=== PATIENT | male | born 1985 | race Caucasian/White ===

== ENCOUNTER 2016-05-06 08:27 | Inpatient (IN) | payer OTHER ==
[~2016-05-06] VITALS: Ht 170.1 cm; Wt 61.9 kg
[~2016-05-06 08:27] MED LIST: ANAPROX DS550 MG PO; BACTRIM DS 8001 TA1 PO; BENTYL20 MG PO; DUCODYL5 MG PO; LOMOTIL 0.025 M1 TA1 PO; NKHM; PERCOCET 325 MG1 TA5 PO; PRILOSEC20 M1 PO; PYRIDIUM200 M1 PO; ZANTAC150 MG PO; ZOFRAN ODT4 MG SL
[2016-05-06 09:09] LABS: HEMATOCRIT 44.1 % (42.0-52.0); HEMOGLOBIN 15.1 g/dl (14.0-18.0); MEAN CELL VOLUME 87.2 fl (80.0-94.0); MEAN CORPUSCULAR HGB 29.8 pg (27.0-31.0); MEAN CORPUSCULAR HGB CONC 34.2 g/dl (33.0-37.0); MEAN PLATELET VOLUME 8.9 fl (9.6-12.3); PLATELET COUNT AUTOMATED 253 10*3/uL (130-400); RED BLOOD COUNT 5.06 10*6/uL (4.50-5.90); RED CELL DISTRI WIDTH 12.4 % (0-14.5); WHITE BLOOD COUNT 12.5 10*3/uL (4.8-10.8)
[2016-05-06 09:23] LABS: ALBUMIN 4.3 gm/dl (3.1-4.5); ALKALINE PHOSPHATASE 94 U/L (45-117); BILIRUBIN, TOTAL 0.6 mg/dl (0.2-1.0); BUN 22 mg/dl (7-24); C-REACTIVE PROTEIN 0.98 MG/DL (0-0.3); CARBON DIOXIDE 23 mmol/L (21-32); CHLORIDE 106 mmol/L (98-107); EST GLOM FILT AFRICAN AMERICAN > 60 ml/min; GLUCOSE 106 mg/dL (65-99); MAGNESIUM 2.2 mg/dL (1.5-2.1); POTASSIUM 4.6 mmol/L (3.5-5.1); SGOT/AST 60 IU/L (3-35); SGPT/ALT 55 U/L (12-78); SODIUM 140 mmol/L (136-145); TOTAL PROTEIN 9.3 gm/dL (6.4-8.2)
[2016-05-06 09:26] LABS: BASOPHIL # 0.1 10*3/uL (0-0.1); BASOPHILS 1 % (0-1); EOSINOPHIL # 0.3 10*3/uL (0-0.4); EOSINOPHILS 2 % (1-4); LYMPHOCYTE # 0.6 10*3/uL (1.3-4.4); MONOCYTE # 0.3 10*3/uL (0.1-1.0); NEUTROPHIL # 11.3 10*3/uL (2.3-7.9); NEUTROPHILS 90 % (47-73); PLATELET SUFFICIENCY NORMAL (NORMAL); TOTAL CELLS COUNTED 100 #CELLS
[2016-05-07 06:58] LABS: BASO % 0.4 % (0.0-1.0); EOS # 0.1 10*3/uL (0.0-0.4); EOS % 1.5 % (1.0-4.0); LYMPH # 1.5 10*3/uL (1.3-4.4); LYMPH % 31.8 % (27.0-41.0); MEAN CELL VOLUME 88.8 fl (80.0-94.0); MEAN CORPUSCULAR HGB 29.7 pg (27.0-31.0); MEAN CORPUSCULAR HGB CONC 33.4 g/dl (33.0-37.0); MEAN PLATELET VOLUME 9.1 fl (9.6-12.3); MONO # 0.5 10*3/uL (0.1-1.0); MONO % 10.5 % (3.0-9.0); NEUT # 2.6 10*3/uL (2.3-7.9); NEUT % 55.2 % (47.0-73.0); PLATELET COUNT AUTOMATED 191 10*3/uL (130-400); RED BLOOD COUNT 3.84 10*6/uL (4.50-5.90); RED CELL DISTRI WIDTH 12.5 % (0-14.5); WHITE BLOOD COUNT 4.7 10*3/uL (4.8-10.8)
[2016-05-07 06:59] LABS: HEMATOCRIT 34.1 % (42.0-52.0); HEMOGLOBIN 11.4 g/dl (14.0-18.0)
[2016-05-07 07:07] LABS: HEMOGLOBIN A1c 5.5 % (4.8-5.6)
[2016-05-07 07:24] LABS: BUN 14 mg/dl (7-24); CARBON DIOXIDE 29 mmol/L (21-32); CHLORIDE 109 mmol/L (98-107); CHOLESTEROL 103 mg/dL (<200); EST GLOM FILT AFRICAN AMERICAN > 60 ml/min; GLUCOSE 120 mg/dL (65-99); MAGNESIUM 2.3 mg/dL (1.5-2.1); POTASSIUM 3.9 mmol/L (3.5-5.1); SGOT/AST 115 IU/L (3-35); SGPT/ALT 176 U/L (12-78); SODIUM 144 mmol/L (136-145)
[2016-05-07 07:31] LABS: ALKALINE PHOSPHATASE 95 U/L (45-117); BILIRUBIN, TOTAL 0.4 mg/dl (0.2-1.0); FREE T4 0.75 ng/dl (0.76-1.46); HDL CHOLESTEROL 66 mg/dl (40-60); LDL CHOLESTEROL 29 mg/dL (9-159); PHOSPHOROUS 2.4 mg/dL (2.5-4.9); THYROID STIM HORMONE (HS) 0.611 uIU/ml (0.358-4.75); TOTAL PROTEIN 6.4 gm/dL (6.4-8.2); TRIGLYCERIDES 41 mg/dl (<150); VLDL CHOLESTEROL 8 mg/dL (6-40)
[2016-05-07 08:42] LABS: VITAMIN D, 25-HYDROXY 7.4 ng/mL (30-100)
[2016-05-07 08:43] LABS: FOLIC ACID 12.3 ng/mL (>5.38)
[2016-05-08 06:43] LABS: BASO % 0.2 % (0.0-1.0); EOS # 0.1 10*3/uL (0.0-0.4); EOS % 3.1 % (1.0-4.0); HEMATOCRIT 33.4 % (42.0-52.0); HEMOGLOBIN 11.2 g/dl (14.0-18.0); LYMPH # 1.6 10*3/uL (1.3-4.4); LYMPH % 36.2 % (27.0-41.0); MEAN CELL VOLUME 89.5 fl (80.0-94.0); MEAN CORPUSCULAR HGB CONC 33.5 g/dl (33.0-37.0); MEAN PLATELET VOLUME 9.3 fl (9.6-12.3); MONO # 0.6 10*3/uL (0.1-1.0); MONO % 13.6 % (3.0-9.0); NEUT # 2.1 10*3/uL (2.3-7.9); NEUT % 46.5 % (47.0-73.0); PLATELET COUNT AUTOMATED 205 10*3/uL (130-400); RED BLOOD COUNT 3.73 10*6/uL (4.50-5.90); RED CELL DISTRI WIDTH 12.3 % (0-14.5); WHITE BLOOD COUNT 4.5 10*3/uL (4.8-10.8)
[2016-05-08 07:40] LABS: ALKALINE PHOSPHATASE 84 U/L (45-117); BILIRUBIN, TOTAL 0.3 mg/dl (0.2-1.0); BUN 7 mg/dl (7-24); CARBON DIOXIDE 30 mmol/L (21-32); CHLORIDE 107 mmol/L (98-107); EST GLOM FILT AFRICAN AMERICAN > 60 ml/min; GLUCOSE 110 mg/dL (65-99); POTASSIUM 3.9 mmol/L (3.5-5.1); SGOT/AST 49 IU/L (3-35); SGPT/ALT 118 U/L (12-78); SODIUM 144 mmol/L (136-145); TOTAL PROTEIN 6.2 gm/dL (6.4-8.2)
[2016-05-09 06:23] LABS: ALBUMIN 3.2 gm/dl (3.1-4.5); CHLORIDE 108 mmol/L (98-107); GLUCOSE 95 mg/dL (65-99); POTASSIUM 3.7 mmol/L (3.5-5.1); SODIUM 145 mmol/L (136-145)
[2016-05-09 06:28] LABS: ALKALINE PHOSPHATASE 100 U/L (45-117); BILIRUBIN, TOTAL 0.3 mg/dl (0.2-1.0); BUN 5 mg/dl (7-24); CARBON DIOXIDE 29 mmol/L (21-32); EST GLOM FILT AFRICAN AMERICAN > 60 ml/min; SGOT/AST 123 IU/L (3-35); SGPT/ALT 148 U/L (12-78); TOTAL PROTEIN 6.7 gm/dL (6.4-8.2)
[2016-05-09 08:11] LABS: HEPATITIS C VIRUS ANTIBODY <0.1 s/co (0.0-0.9)
[2016-05-09] MEDS ORDERED: VITAMIN D50000 I3 PO (15:45)
== END 2016-05-09 16:10 | disposition home or self-care (01) | DRG 439 ==
LOC: ED 08:27 → EDHOLD 09:59 → 4E 09:59
PROVIDERS: Emergency Medicine; Internal Medicine; Internal Medicine Gastroenterology; Internal Medicine Hospice and Palliative Medicine
DX: K85.90 Acute pancreatitis without necrosis or infection, unspecified (principal); R65.10 Systemic inflammatory response syndrome (SIRS) of non-infectious origin without acute organ dysfunction; E83.41 Hypermagnesemia; E83.39 Other disorders of phosphorus metabolism; R73.9 Hyperglycemia, unspecified; E55.9 Vitamin D deficiency, unspecified; R74.0 Nonspecific elevation of levels of transaminase and lactic acid dehydrogenase [LDH]; K29.70 Gastritis, unspecified, without bleeding; Z90.49 Acquired absence of other specified parts of digestive tract; Z83.6 Family history of other diseases of the respiratory system; Z79.899 Other long term (current) drug therapy; Z88.1 Allergy status to other antibiotic agents

== ENCOUNTER → 2016-05-30 | Day surgery (SDC) | payer OTHER ==
[~2016-05-30] VITALS: Ht 167.6 cm; Wt 61.2 kg
[~2016-05-30] MED LIST changes: +OMEPRAZOLE40 MG PO; +VITAMIN D50000 I3 PO
--- NOTE | ~2016-05-30 | O ---
[place], [place] OPERATIVE NOTE NAME: [id number] UNIT #: [id number] ROOM: DOCTOR: NICOLE CHU,HAM BIRTHDATE: [birth year] DOS: 05/30/2016 HISTORY OF PRESENT ILLNESS: The patient presented with chief complaint of epigastric abdominal pain, dyspepsia, history of pancreatitis in past, recent admission and discharge. The patient is a smoker, nonalcohol consumer. Past surgical history of cholecystectomy and bilateral inguinal hernia repair. PROCEDURE: Today's procedure part of investigation is panendoscopy plus biopsy. PREMEDICATION: Versed and Diprivan. SCOPE: Olympus forward-viewing gastroscope Q10 video. REPORT: After putting the patient in the left lateral position and after application of lubricant to the scope, the scope was introduced and thereafter, under direct visualization, advanced through the length of esophagus without difficulty. Esophagus cervicothoracic distally was carefully examined. Gastric pouch was entered. A 1.5 cm in diameter punctate ulceration in antrum was identified, photographed, margin of which multiple times biopsied, ruling out H. pylori involvement. Duodenal bulb, second and third part within normal limits. The patient extubated, tolerated procedure well. IMPRESSION: Antral ulcer, status post biopsy. Etiology of antral ulcer presence is unclear so far. The patient denies nonsteroidal anti-inflammatory, prednisone therapy, or otherwise aggressive medications. The patient is not on aspirin. Therefore, H. pylori is pending. Meanwhile, we are going to start him on omeprazole 40 mg one daily and I have advised him that the patient needs to have followup with family physician and also 2 weeks' followup with me in [facility]. HAM RIVERA MD CM:OPRECORD:OPERATIVE NOTE [id number] HAM RIVERA MD 05/30/169 interface
[2016-05-30 12:50] VITALS: BP 107/75
[2016-05-30 14:52] VITALS: BP 89/49
[2016-05-30 15:07] VITALS: BP 100/71
[2016-05-30 15:34] VITALS: BP 112/76
== END | disposition home or self-care (01) ==
LOC: SDC 05-27 11:00
DX: K29.50 Unspecified chronic gastritis without bleeding (principal); K25.9 Gastric ulcer, unspecified as acute or chronic, without hemorrhage or perforation; F17.210 Nicotine dependence, cigarettes, uncomplicated; Z98.890 Other specified postprocedural states; Z90.49 Acquired absence of other specified parts of digestive tract; Z82.5 Family history of asthma and other chronic lower respiratory diseases

== ENCOUNTER → 2017-07-28 | Outpatient (CLI) | payer OTHER ==
[~2017-07-28] MED LIST changes: +COLACE100 MG PO; +IBUPROFEN600 MG PO; +TRAMADOL HCL50 MG PO
== END | disposition home or self-care (01) ==
LOC: LAB 09:23
DX: R10.30 Lower abdominal pain, unspecified (principal); K40.91 Unilateral inguinal hernia, without obstruction or gangrene, recurrent

== ENCOUNTER → 2017-08-14 | Day surgery (SDC) | payer OTHER ==
[2017-08-10 07:39] VITALS: BP 108/71
[2017-08-14] VITALS (7 sets, daily range): BP systolic 111–132; BP diastolic 65–84
[~2017-08-14] VITALS: Ht 170.1 cm; Wt 68.0 kg
== END | disposition home or self-care (01) ==
LOC: SDC 07-20 08:00
DX: K40.91 Unilateral inguinal hernia, without obstruction or gangrene, recurrent (principal); Z53.31 Laparoscopic surgical procedure converted to open procedure; F17.210 Nicotine dependence, cigarettes, uncomplicated; Z90.49 Acquired absence of other specified parts of digestive tract; Z98.890 Other specified postprocedural states; Z88.8 Allergy status to other drugs, medicaments and biological substances

== ENCOUNTER 2018-07-04 00:30 | Emergency (ER) | payer OTHER ==
[~2018-07-04] VITALS: Ht 167.6 cm; Wt 68.0 kg
[2018-07-04] MEDS ORDERED: AUGMENTIN 875-875 MG PO (01:08)
== END 2018-07-04 01:38 | disposition home or self-care (01) ==
LOC: ED 00:30
DX: H66.91 Otitis media, unspecified, right ear (principal); H72.91 Unspecified perforation of tympanic membrane, right ear; H92.02 Otalgia, left ear; F17.200 Nicotine dependence, unspecified, uncomplicated; Z88.1 Allergy status to other antibiotic agents

== ENCOUNTER 2018-07-25 20:13 | Emergency (ER) | payer OTHER ==
[~2018-07-25] VITALS: Ht 167.6 cm; Wt 68.0 kg
[~2018-07-25 20:13] MED LIST changes: +AUGMENTIN 875-875 MG PO
[2018-07-25] MEDS ORDERED: IBUPROFEN600 MG PO (20:24)
[2018-07-25] MEDS ORDERED: AUGMENTIN 875875 MG PO (20:24)
[2018-07-26] MEDS ORDERED: ZOFRAN4 MG PO (18:34)
== END 2018-07-25 20:42 | disposition home or self-care (01) ==
LOC: ED 20:13
DX: S01.85XA Open bite of other part of head, initial encounter (principal); Z90.49 Acquired absence of other specified parts of digestive tract; Z98.890 Other specified postprocedural states; Z88.1 Allergy status to other antibiotic agents; W54.0XXA Bitten by dog, initial encounter; Y93.89 Activity, other specified; Y92.098 Other place in other non-institutional residence as the place of occurrence of the external cause; Y99.9 Unspecified external cause status

== ENCOUNTER 2018-07-26 15:11 | Emergency (ER) | payer SELFPAY ==
[~2018-07-26] VITALS: Ht 170.1 cm; Wt 68.0 kg
[~2018-07-26 15:11] MED LIST changes: +AUGMENTIN 875875 MG PO
[2018-07-26 15:34] LABS: HEMATOCRIT 46.5 % (42.0-52.0); HEMOGLOBIN 15.9 g/dl (14.0-18.0); MEAN CELL VOLUME 89.1 fl (80.0-94.0); MEAN CORPUSCULAR HGB 30.5 pg (27.0-31.0); MEAN CORPUSCULAR HGB CONC 34.2 g/dl (33.0-37.0); MEAN PLATELET VOLUME 9.4 fl (9.6-12.3); PLATELET COUNT AUTOMATED 279 10*3/uL (130-400); RED BLOOD COUNT 5.22 10*6/uL (4.50-5.90); RED CELL DISTRI WIDTH 12.5 % (0-14.5); WHITE BLOOD COUNT 26.7 10*3/uL (4.8-10.8)
[2018-07-26 15:56] LABS: ALBUMIN 4.7 gm/dl (3.1-4.5); ALKALINE PHOSPHATASE 96 U/L (45-117); BUN 21 mg/dl (7-24); CHLORIDE 101 mmol/L (98-107); CREATININE 0.93 mg/dL (0.70-1.30); LIPASE 254 U/L (73-393); POTASSIUM 3.7 mmol/L (3.5-5.1); SGOT/AST 23 IU/L (3-35); SGPT/ALT 22 U/L (12-78); SODIUM 136 mmol/L (136-145); TOTAL PROTEIN 9.1 gm/dL (6.4-8.2)
[2018-07-26 16:05] LABS: BASOPHILS 1 % (0-1); OVALOCYTES FEW; TOTAL CELLS COUNTED 100 #CELLS
[2018-07-26 16:06] LABS: PLATELET SUFFICIENCY NORMAL (NORMAL); VACUOLATION OF NEUTROPHILS SLIGHT
[2018-07-26 17:53] LABS: BILIRUBIN NEGATIVE (NEGATIVE); BLOOD NEGATIVE (NEGATIVE); CLARITY CLEAR (CLEAR); COLOR YELLOW (YELLOW); GLUCOSE NEGATIVE (NEGATIVE); KETONE NEGATIVE (NEGATIVE); LEUKO ESTERASE NEGATIVE (NEGATIVE); NITRITE NEGATIVE (NEGATIVE); SPECIFIC GRAVITY >= 1.030 (1.005-1.030); UROBILINOGEN 0.2 E.U./dl (0.2-1.0)
[2018-07-26 18:05] LABS: BACTERIA 1+; EPITHELIAL CELLS 0-2; MUCOUS 2+; WBC 0-2 wbc/hpf (0-5)
[2018-07-26] MEDS ORDERED: ZOFRAN4 MG PO (18:34)
== END 2018-07-26 18:37 ==
LOC: ED 15:11
PROVIDERS: Nurse Practitioner Family
DX: K52.9 Noninfective gastroenteritis and colitis, unspecified (principal); Z90.49 Acquired absence of other specified parts of digestive tract; Z98.890 Other specified postprocedural states; Z88.1 Allergy status to other antibiotic agents

== ENCOUNTER 2019-03-18 00:52 | Emergency (ER) | payer OTHER ==
[~2019-03-18] VITALS: Ht 165.1 cm; Wt 68.9 kg
[~2019-03-18 00:52] MED LIST changes: +ZOFRAN4 MG PO
[2019-03-18 02:01] LABS: BASO % 0.2 % (0.0-1.0); EOS # 0.1 10*3/uL (0.0-0.4); EOS % 0.7 % (1.0-4.0); HEMATOCRIT 46.5 % (42.0-52.0); HEMOGLOBIN 15.6 g/dl (14.0-18.0); LYMPH # 0.9 10*3/uL (1.3-4.4); LYMPH % 5.2 % (27.0-41.0); MEAN CELL VOLUME 89.9 fl (80.0-94.0); MEAN CORPUSCULAR HGB 30.2 pg (27.0-31.0); MEAN CORPUSCULAR HGB CONC 33.5 g/dl (33.0-37.0); MEAN PLATELET VOLUME 9.1 fl (9.6-12.3); MONO # 0.6 10*3/uL (0.1-1.0); MONO % 3.5 % (3.0-9.0); NEUT # 14.6 10*3/uL (2.3-7.9); PLATELET COUNT AUTOMATED 270 10*3/uL (130-400); RED BLOOD COUNT 5.17 10*6/uL (4.50-5.90); RED CELL DISTRI WIDTH 12.8 % (0-14.5); WHITE BLOOD COUNT 16.2 10*3/uL (4.8-10.8)
[2019-03-18 02:17] LABS: ALBUMIN 4.7 gm/dl (3.1-4.5); ALKALINE PHOSPHATASE 109 U/L (45-117); BUN 27 mg/dl (7-24); CHLORIDE 105 mmol/L (98-107); CREATININE 1.07 mg/dL (0.70-1.30); POTASSIUM 4.1 mmol/L (3.5-5.1); SGOT/AST 181 IU/L (3-35); SGPT/ALT 113 U/L (12-78); SODIUM 139 mmol/L (136-145); TOTAL PROTEIN 8.8 gm/dL (6.4-8.2)
[2019-03-18 02:56] LABS: LIPASE 168 U/L (73-393)
== END 2019-03-18 05:13 | disposition home or self-care (01) ==
LOC: ED 00:52
PROVIDERS: Emergency Medicine
DX: K52.9 Noninfective gastroenteritis and colitis, unspecified (principal); F17.200 Nicotine dependence, unspecified, uncomplicated; Z88.1 Allergy status to other antibiotic agents; Z79.899 Other long term (current) drug therapy; Z90.49 Acquired absence of other specified parts of digestive tract

== ENCOUNTER 2020-07-03 03:45 | Emergency (ER) | payer OTHER ==
[~2020-07-03] VITALS: Ht 167.6 cm; Wt 65.8 kg
[2020-07-03] MEDS ORDERED: NAPROSYN500 MG PO (04:05)
[2020-07-03] MEDS ORDERED: METHOCARBAMOL750 M1 PO (04:05)
== END 2020-07-03 04:30 | disposition home or self-care (01) ==
LOC: ED 03:45
DX: S16.1XXA Strain of muscle, fascia and tendon at neck level, initial encounter (principal); M54.2 Cervicalgia; F17.200 Nicotine dependence, unspecified, uncomplicated; Z88.8 Allergy status to other drugs, medicaments and biological substances; Z90.49 Acquired absence of other specified parts of digestive tract; Z98.890 Other specified postprocedural states; X58.XXXA Exposure to other specified factors, initial encounter; Y93.89 Activity, other specified; Y92.89 Other specified places as the place of occurrence of the external cause; Y99.8 Other external cause status

== ENCOUNTER 2021-07-01 19:17 | Emergency (ER) | payer OTHER ==
[~2021-07-01 19:17] MED LIST changes: +METHOCARBAMOL750 M1 PO; +NAPROSYN500 MG PO
[2021-07-01] MEDS ORDERED: CIPRO500 MG PO (23:38)
== END 2021-07-01 23:42 | disposition home or self-care (01) ==
LOC: ED 19:17
DX: K52.9 Noninfective gastroenteritis and colitis, unspecified (principal); Z88.1 Allergy status to other antibiotic agents

== ENCOUNTER 2022-08-23 04:29 | Emergency (ER) | payer OTHER ==
[~2022-08-23 04:29] MED LIST changes: +CIPRO500 MG PO
== END 2022-08-23 05:08 | disposition home or self-care (01) ==
LOC: ED 04:29
DX: S00.411A Abrasion of right ear, initial encounter (principal); H65.91 Unspecified nonsuppurative otitis media, right ear; Z88.1 Allergy status to other antibiotic agents; Z90.49 Acquired absence of other specified parts of digestive tract; Z90.89 Acquired absence of other organs; Z98.890 Other specified postprocedural states; W22.8XXA Striking against or struck by other objects, initial encounter; Y93.89 Activity, other specified; Y92.009 Unspecified place in unspecified non-institutional (private) residence as the place of occurrence of the external cause; Y99.8 Other external cause status

== ENCOUNTER 2022-08-30 12:10 | Emergency (ER) | payer OTHER ==
[~2022-08-30] VITALS: Ht 167.6 cm; Wt 63.5 kg
[2022-08-30] MEDS ORDERED: VIBRAMYCIN100 MG PO (12:46)
== END 2022-08-30 12:51 | disposition home or self-care (01) ==
LOC: ED 12:10
DX: A69.20 Lyme disease, unspecified (principal); Z88.1 Allergy status to other antibiotic agents; Z90.49 Acquired absence of other specified parts of digestive tract; Z90.89 Acquired absence of other organs; Z98.890 Other specified postprocedural states

== ENCOUNTER 2023-07-29 19:20 | Emergency (ER) | payer SELFPAY ==
[~2023-07-29] VITALS: Ht 167.6 cm; Wt 72.6 kg
[~2023-07-29 19:20] MED LIST changes: +VIBRAMYCIN100 MG PO
[2023-07-29] MEDS ORDERED: predniSONE 20 MG TAB PO ONE (19:55)
[2023-07-29] MEDS ORDERED: Amoxicillin/Clavulanate Pota 875 MG TAB PO ONE (19:55)
[2023-07-29] MEDS ORDERED: AMOX-CLAV 875-1 EACH PO (19:57)
[2023-07-29] MEDS ORDERED: PREDNISONE20 M1 PO (19:57)
== END 2023-07-29 20:04 | disposition home or self-care (01) ==
LOC: ED 19:20
DX: J03.90 Acute tonsillitis, unspecified (principal); K12.2 Cellulitis and abscess of mouth; F17.290 Nicotine dependence, other tobacco product, uncomplicated; Z88.1 Allergy status to other antibiotic agents; Z79.2 Long term (current) use of antibiotics; Z90.49 Acquired absence of other specified parts of digestive tract; Z98.890 Other specified postprocedural states

== ENCOUNTER 2024-01-28 20:59 | Emergency (ER) | payer OTHER ==
[~2024-01-28] VITALS: Ht 167.6 cm; Wt 65.8 kg
[~2024-01-28 20:59] MED LIST changes: +AMOX-CLAV 875-1 EACH PO; +PREDNISONE20 M1 PO
[2024-01-28] MEDS ORDERED: AMOX-CLAV 875-1 EACH PO (22:31)
[2024-01-28] MEDS ORDERED: MEDROL DOSEPAK4 MG PO (22:31)
== END 2024-01-28 22:37 | disposition home or self-care (01) ==
LOC: ED 20:59
DX: J40 Bronchitis, not specified as acute or chronic (principal); Z20.822 Contact with and (suspected) exposure to COVID-19; F17.290 Nicotine dependence, other tobacco product, uncomplicated; Z88.1 Allergy status to other antibiotic agents; Z90.49 Acquired absence of other specified parts of digestive tract; Z90.89 Acquired absence of other organs; Z98.890 Other specified postprocedural states

== ENCOUNTER 2024-02-26 00:25 | Emergency (ER) | payer OTHER ==
[~2024-02-26] VITALS: Ht 167.6 cm; Wt 65.8 kg
[~2024-02-26 00:25] MED LIST changes: +MEDROL DOSEPAK4 MG PO
[2024-02-26] MEDS ORDERED: SODIUM CHLORIDE 0.9% 500 ML IV ONE (00:40)
[2024-02-26 01:01] LABS: BASO # 0.1 10*3/uL (0.0-0.1); BASO % 0.3 % (0.0-1.0); EOS # 0.4 10*3/uL (0.0-0.4); EOS % 2.4 % (1.0-4.0); HEMATOCRIT 42.1 % (42.0-52.0); MEAN CELL VOLUME 88.8 fl (80.0-94.0); MEAN CORPUSCULAR HGB 30.2 pg (27.0-31.0); MEAN PLATELET VOLUME 8.9 fl (9.6-12.3); MONO # 1.1 10*3/uL (0.1-1.0); MONO % 6.2 % (3.0-9.0); NEUT # 11.8 10*3/uL (2.3-7.9); NEUT % 66.5 % (47.0-73.0); PLATELET COUNT AUTOMATED 227 10*3/uL (130-400); RED BLOOD COUNT 4.74 10*6/uL (4.50-5.90); RED CELL DISTRI WIDTH 13.1 % (0-14.5); WHITE BLOOD COUNT 17.7 10*3/uL (4.8-10.8)
[2024-02-26 01:21] LABS: BUN 15 mg/dl (9-23); CHLORIDE 102 mmol/L (98-107); POTASSIUM 3.5 mmol/L (3.4-5.1)
== END 2024-02-26 03:24 | disposition home or self-care (01) ==
LOC: ED 00:25
PROVIDERS: Internal Medicine
DX: R55 Syncope and collapse (principal); R56.9 Unspecified convulsions; F17.200 Nicotine dependence, unspecified, uncomplicated; Z88.1 Allergy status to other antibiotic agents; Z90.49 Acquired absence of other specified parts of digestive tract; Z90.89 Acquired absence of other organs; Z98.890 Other specified postprocedural states

== ENCOUNTER 2024-06-12 02:12 | Emergency (ER) | payer OTHER ==
[~2024-06-12] VITALS: Ht 165.1 cm; Wt 65.8 kg
[2024-06-12] MEDS ORDERED: MELOXICAM15 MG PO (03:44)
[2024-06-12] MEDS ORDERED: Acetaminophen/Oxycodone 5 MG/325 MG TABLET PO ONE (03:45)
== END 2024-06-12 03:50 | disposition home or self-care (01) ==
LOC: ED 02:12
DX: S20.211A Contusion of right front wall of thorax, initial encounter (principal); M25.521 Pain in right elbow; F17.290 Nicotine dependence, other tobacco product, uncomplicated; Z88.1 Allergy status to other antibiotic agents; Z90.49 Acquired absence of other specified parts of digestive tract; Z98.890 Other specified postprocedural states; W10.8XXA Fall (on) (from) other stairs and steps, initial encounter; Y93.89 Activity, other specified; Y92.89 Other specified places as the place of occurrence of the external cause; Y99.8 Other external cause status